=== PATIENT | female | born 1950 | race Hispanic/Latino ===

== ENCOUNTER → 2024-01-10 | Day surgery (SDC) | payer OTHER ==
[2024-01-03 13:49] LABS: BASOPHILS # (AUTO) 0.1 (0.0-0.1); BASOPHILS % 0.8 % (0.0-1.0); EOSINOPHILS # (AUTO) 0.2 (0.0-0.4); EOSINOPHILS % 2.7 % (0.0-6.0); HEMATOCRIT 43.3 % (34.2-44.1); HEMOGLOBIN 14.1 g/dL (12.0-16.0); LYMPHOCYTES # (AUTO) 2.5 (1.0-3.2); LYMPHOCYTES % 31.5 % (18.0-39.1); MEAN CORPUSCULAR HEMOGLOBIN 31.8 pg (28-32); MEAN CORPUSCULAR HGB CONC 32.6 g/dL (31-35); MEAN CORPUSCULAR VOLUME 97.5 fL (81-99); MONOCYTES # (AUTO) 0.7 (0.2-0.8); MONOCYTES % 8.5 % (4.4-11.3); NEUTROPHILS # (AUTO) 4.4 (2.1-6.9); NEUTROPHILS % 56.4 % (38.7-80.0); PLATELET COUNT 210 x10e3/uL (140-360); RED BLOOD COUNT 4.44 x10e6/uL (3.6-5.1); RED CELL DISTRIBUTION WIDTH 11.8 % (11.7-14.4); WHITE BLOOD COUNT 7.77 x10e3/uL (4.8-10.8)
[~2024-01-10] MED LIST: ALFALFA250 MG PO; ALOE VERA237 ML PO; BIOTIN5 MG MC; CRANBERRY200 MG PO; FAMOTIDINE20 MG PO; OMEGA 3 1,0001 EACH PO; OS-CAL 500+D T1 EACH PO; PROBIOTIC & AC1 EACH PO; VITAMIN B-121000 MCG PO; VITAMIN C1000 MG PO; VITAMIN E400 UNI1 PO; ZESTRIL40 MG PO
[2024-01-10] MEDS: LACTATED RINGER'S 1,000 ML ONE (09:20)
[2024-01-10 14:12] VITALS: TEMP 97.8
[2024-01-10 14:25] VITALS: BP 137/88; PULSE 66; RESP 18; O2SAT 100
== END | disposition home or self-care (01) ==
LOC: OR 08:06
PROVIDERS: ATTEND Internal Medicine Gastroenterology
DX: Z12.11 Encounter for screening for malignant neoplasm of colon (principal); K57.30 Diverticulosis of large intestine without perforation or abscess without bleeding; K64.1 Second degree hemorrhoids; K29.70 Gastritis, unspecified, without bleeding; K44.9 Diaphragmatic hernia without obstruction or gangrene; K21.9 Gastro-esophageal reflux disease without esophagitis; Z71.3 Dietary counseling and surveillance; E66.01 Morbid (severe) obesity due to excess calories; I10 Essential (primary) hypertension; Z78.9 Other specified health status; F41.9 Anxiety disorder, unspecified; F32.A Depression, unspecified; Z88.1 Allergy status to other antibiotic agents; Z88.2 Allergy status to sulfonamides; Z88.8 Allergy status to other drugs, medicaments and biological substances; Z01.810 Encounter for preprocedural cardiovascular examination; Z01.812 Encounter for preprocedural laboratory examination; Z79.899 Other long term (current) drug therapy; Z68.31 Body mass index [BMI] 31.0-31.9, adult
CPT/HCPCS: 36415; 85025; 93005; G0121; J7121; 45378